=== PATIENT | female | born 1975 | race Two or more races ===

== ENCOUNTER 2017-03-30 08:57 | Emergency (ER) | payer MEDICAID ==
--- NOTE | 2017-03-30 09:12 | Emergency Department Record ---
History of Present Illness - General Chief complaint: Vomiting Stated complaint: VOMITING AND DIARRHEA Source: Patient Mode of Arrival: Ambulatory Limitations: No limitations - History of Present Illness Initial comments: 41 yo female presents with 5 days of diarrhea. She started with nausea, vomiting and diarrhea but the diarrhea continues. No blood or fevers. No known exposures. No travel or antibiotics. She is normally healthy. She saw her PCP 2 days ago and was instructed to go to the ER. Today is her first follow up since the doctors appointment. No dysuria. She was given Zofran by her doctor with controls the nausea. She took Pepto-Bismol and Imodium which helped with the diarrhea but did not take any today. MD complaint: Diarrhea, Nausea, Vomiting -: Days(s) (5) Description of Vomiting: Watery Associated Abdominal Pain: Yes Location: Diffuse Radiation: None Severity: Moderate Quality: Cramping Improves with: None Worsens with: Eating Context: Other Associated Symptoms: Loss of appetite, Nausea/vomiting - Related Data Home Medications Medication Instructions Recorded Confirmed Last Taken Alprazolam [Xanax] 0.25 mg PO ASDIR 03/30/17 03/30/17 03/29/17 Fenofibrate 40 mg PO DAILY 03/30/17 03/30/17 03/29/17 Metformin HCl 500 mg PO DAILY 03/30/17 03/30/17 03/29/17 Ondansetron [Zofran Odt] 4 mg PO Q8H 03/30/17 03/30/17 03/29/17 Sertraline HCl [Zoloft] 20 mg PO DAILY 03/30/17 03/30/17 03/29/17 Allergies Allergy/AdvReac Type Severity Reaction Status Date / Time No Known Drug Allergies Allergy Verified 03/30/17 09:01 Review of Systems Constitutional: Reports: Malaise. Denies: Chills, Fever Eyes: Denies: Eye discharge, Eye pain, Photophobia, Vision change ENT: Denies: Congestion, Throat pain Respiratory: Denies: Cough, Dyspnea, Hemoptysis, Stridor, Wheezes Cardiovascular: Denies: Chest pain, Palpitations, Syncope Endocrine: Reports: Fatigue. Denies: Polydipsia, Polyuria Gastrointestinal: Reports: As per HPI, Abdominal pain, Diarrhea, Nausea, Vomiting. Denies: Constipation, Hematemesis, Hematochezia, Melena Genitourinary: Denies: Dysuria, Urgency Musculoskeletal: Denies: Arthralgia, Back pain, Myalgia, Neck pain Skin: Denies: Bruising, Change in color, Rash Neurological: Denies: Headache, Numbness, Vertigo, Weakness Psychiatric: Denies: Anxiety Hematological/Lymphatic: Denies: Anemia, Blood Clots, Easy bleeding, Easy bruising, Swollen glands Physical Exam - General General Appearance: Alert, Oriented x3, Cooperative, No acute distress Limitations: No limitations - Head Head exam: Normal inspection - Eye Eye exam: Normal appearance, PERRL. negative: Conjunctival injection, Periorbital swelling - ENT ENT exam: Normal exam, Mucous membranes moist, Normal external ear exam, Normal orophraynx Ear exam: Normal external inspection. negative: External canal tenderness Nasal Exam: Normal inspection. negative: Discharge, Sinus tenderness Mouth exam: Normal external inspection, Tongue normal - Neck Neck exam: Normal inspection, Full ROM. negative: Tenderness - Respiratory Respiratory exam: Normal lung sounds bilaterally. negative: Respiratory distress - Cardiovascular Cardiovascular Exam: Regular rate, Normal rhythm, Normal heart sounds - GI/Abdominal GI/Abdominal exam: Soft. negative: Distended, Guarding, Rebound, Rigid, Tenderness - Rectal Rectal exam: Deferred - exam: Deferred - Extremities Extremities exam: Normal inspection, Full ROM, Normal capillary refill. negative: Pedal edema, Tenderness - Back Back exam: Reports: Normal inspection, Full ROM. Denies: Muscle spasm, Rash noted, Tenderness - Neurological Neurological exam: Alert, Normal gait, Oriented X3 - Psychiatric Psychiatric exam: Normal affect, Normal mood - Skin Skin exam: Dry, Intact, Normal color, Warm Course - Reevaluation(s) Reevaluation #1: The labs were reviewed The K is 2.8 AST is 279, ALT is 130, ALP Phos is 132 Bili and Lipase are normal The patient is on Tricor that can elevate liver enzymes 03/30/17 10:22 Reevaluation #2: The patient is feeling much improved We discussed her labs She has have her potassium replaced, US completed of the liver We discussed holding her Tricor and having the liver panel rechecked in 2-3 days. She rarely takes Tylenol at most 2 times per week 03/30/17 10:46 03/30/17 11:57 The patient continues to feel much improved No abdominal pain or tenderness No diarrhea to this point in the ED She is continuing to hydrate and receive the potassium I called the patient's PCP Meagan Lay at [facility] [place] Reevaluation #3: 03/30/17 12:04 I SW Meagan Lay the patient's PCP We discussed the labs She will follow up the LFT's, a hepatitis panel and see the patient first of the week The patient was informed to hold her Tricor until recheck Reevaluation #4: Potassium increased to 3.3 She continues to do very well She will be given instructions for oral potassium replacement as well as one more dose for home this evening. 03/30/17 13:53 Reevaluation #5: No diarrhea during her duration in the ED 03/30/17 13:55 Medical Decision Making - Lab Data Result diagrams: 03/30/17 09:25 03/30/17 13:39 Disposition Disposition: Discharge Clinical Impression: Dehydration, Vomiting and diarrhea, Elevated liver enzymes, Hypokalemia Disposition: Home, Self-Care Condition: (1) Good Instructions: Dehydration (ED), Hypokalemia (ED), Acute Diarrhea (ED) Additional Instructions: Call your doctor for follow up first of the week to recheck your liver enzymes and follow up the hepatitis panel Return or be seen if you have uncontrolled symptoms, concerns about diarrhea, pain, fever or any questions. Do not take your Tricor (cholesterol medication) Do not take any Tylenol products or drink any alcohol until cleared by your doctor. Take the additional dose of Potassium with your evening meal Forms: Patient Portal Access Time of Disposition: 13:56 Quality - Quality Measures Quality Measures: N/A - Blood Pressure Screening View Details: Yes Blood Pressure Classification: Pre-Hypertensive BP Reading Systolic Measurement: 116 Diastolic Measurement: 81 Screening for High Blood Pressure: < Pre-Hypertensive BP, F/U Documented > [ [id number]] Pre-Hypertensive Follow-up Interventions: Referral to alternative/primary care provider.
[2017-03-30] MEDS ORDERED: 0.9 % SODIUM CHLORIDE 1,000 ML BAG IV ONE (09:13)
[2017-03-30] MEDS ORDERED: ONDANSETRON HCL IV 4 MG/2 ML VIAL IV ONE (09:13)
[2017-03-30 09:33] LABS: HEMOGLOBIN 11.9 gm/dl (11.6-16.0); MEAN CELL VOLUME 84.8 fl (81-97); MEAN CORPUSCULAR HEMOGLOBIN 29.7 pg (27-33); MEAN PLATELET VOLUME 9.7 fl (7.4-10.4); PLATELET COUNT 482 K/uL (130-400); RED BLOOD COUNT 4.01 M/uL (3.80-5.40); RED CELL DISTRIBUTION WIDTH 14.1 % (11.5-14.5); WHITE BLOOD COUNT W/O DIFF 9.5 K/uL (4.2-12.2)
[2017-03-30 09:42] LABS: PLATELET ESTIMATE NORMAL (NORMAL)
[2017-03-30 09:47] LABS: ALKALINE PHOSPHATASE 132 U/L (38-126); ALT/SGPT 130 U/L (9-52); ANION GAP 14.7 (7-16); AST/SGOT 279 U/L (14-36); BILIRUBIN,TOTAL 0.85 mg/dL (0.2-1.3); BLOOD UREA NITROGEN 6 mg/dL (7-17); CARBON DIOXIDE 23.3 mmol/L (22-30); CREATININE 0.9 mg/dL (0.52-1.04); EST GLOMERULAR FILTRATION RATE > 60 ml/min; GLUCOSE,RANDOM 117 mg/dL (70-110); LIPASE 73 U/L (23-300); TOTAL PROTEIN 8.1 gm/dL (6.3-8.2)
[2017-03-30 10:02] LABS: URINE APPEARANCE CLEAR; URINE BILIRUBIN NEGATIVE (NEGATIVE); URINE BLOOD MODERATE (NEGATIVE); URINE COLOR YELLOW; URINE GLUCOSE (UA) NEGATIVE (NEGATIVE); URINE KETONE NEGATIVE (NEGATIVE); URINE LEUKOCYTE ESTERASE NEGATIVE (NEGATIVE); URINE NITRITE NEGATIVE (NEGATIVE); URINE PROTEIN TRACE (NEGATIVE); URINE UROBILINOGEN 0.2 E.U./dL (0.20 - 1.00)
[2017-03-30 10:11] LABS: HCG,QUALITATIVE URINE NEGATIVE (NEGATIVE); URINE BACTERIA NONE SEEN; URINE EPITHELIAL CELLS NONE SEEN (FEW); URINE WBC 0 - 2 (0-2/hpf)
[2017-03-30] MEDS ORDERED: SOD CHLOR 0.9% WITH KCL 40MEQ 40 MEQ/1,000 ML IV.SOLN IV ONE (10:13)
[2017-03-30] MEDS ORDERED: POTASSIUM CHLORIDE 20 MEQ TABLET PO ONE ×2 (10:14→13:54)
--- NOTE | 2017-03-30 12:48 | ULTRASOUND REPORT ---
EXAM: ULTRASOUND OF THE ABDOMEN HISTORY: RIGHT UPPER QUADRANT PAIN. TECHNIQUE: Sonographic evaluation of the abdomen was performed using ayon scale imaging. FINDINGS: There is fatty infiltration of the liver. The gallbladder has been surgically removed. No ductal dilatation. The pancreas and spleen appear normal. The kidneys are normal in size with no hydronephrosis or nephrolithiasis. The abdominal aorta and inferior vena cava are patent. No free fluid in the abdomen. IMPRESSION: 1. FATTY INFILTRATION OF THE LIVER. 2. POSTOP CHOLECYSTECTOMY. NO DUCTAL DILATATION. JOB NUMBER: [id number] [facility]
[2017-03-30 22:49] LABS: HEP A AB IGM Nonreactive (Nonreactive); HEPATITIS B CORE ANTIBODY,IGM Nonreactive (Nonreactive); HEPATITIS B SURFACE ANTIGEN Nonreactive (Nonreactive); HEPATITIS C VIRUS ANTIBODY Nonreactive (Nonreactive)
== END 2017-03-30 14:09 | disposition home or self-care (01) ==
LOC: ER 08:57
DX: E86.0 Dehydration (principal); R11.2 Nausea with vomiting, unspecified; R74.8 Abnormal levels of other serum enzymes; E87.6 Hypokalemia
CPT/HCPCS: 99284 ×2; 96365; 96366; 96375; 96361; 83690; 84132; 80053; 81001; 81025; 85027; 76700; J2405; J7030